=== PATIENT | male | born 1990 | race Two or more races ===

== ENCOUNTER 2021-03-04 22:45 | Emergency (ER) | payer SELFPAY ==
[~2021-03-04] VITALS: Ht 177.8 cm; Wt 79.5 kg
--- NOTE | 2021-03-05 00:07 | PHYS DOC ---
Past Medical History Past Surgical History: No Surgical History Smoking Status: Never Smoker Alcohol Use: Occasionally General Adult EDM: Chief Complaint: FACE PROBLEM HPI: HPI: 30-year-old male presents to the emergency department with a facial lesion along with pain that he is experiencing since 3 days ago. He reports before the pain started [place] Denies any trauma or bug bites that he can recall. He reports his pain is in the middle of his forehead and is associated with a red painful lesion, pain radiates down towards his eyes. He denies any change in his vision, pain with extraocular movements. The patient denies nausea, vomiting, fever, chills, chest pain, shortness of breath, abdominal pain, urinary symptoms, cough, recent trauma, or any other complaints. Review of Systems: Review of Systems: ROS is otherwise negative except for what was mentioned in the HPI Heart Score: C/O Chest Pain: No Current Medications: Current Medications Medications (Trade) Dose Ordered Sig/Denzel Start Time Stop Time Status Last Admin Dose Admin Ketorolac Tromethamine (Toradol 15mg Vial) 15 mg 1X ONCE 03/04/21 23:45 03/04/21 23:46 UNV Physical Exam: PE: Constitutional: No acute distress, non-toxic appearance. HENT: Large pimple-like lesion to the central forehead, painful to touch, surrounding erythema is noted Eyes: PERRLA, EOMI, conjunctiva normal, no discharge. Neck: Normal range of motion, supple, no stridor. Cardiovascular: Heart rate regular rhythm. 2+ radial pulses Lungs & Thorax: No respiratory distress, symmetrical expansion. Abdomen: Soft, no tenderness Skin: Warm, dry. Extremities: No tenderness, no cyanosis, ROM intact, no edema. Neurologic: Alert and oriented X 3, normal motor function, normal sensory function, no focal deficits noted. Non ataxic gait. GCS 15. Psychologic: Affect normal, judgment normal, mood normal. Current Patient Data: Labs: Laboratory Tests Test 03/05/21 00:02 White Blood Count 9.7 x10^3/uL (4.0-11.0) Red Blood Count 5.97 x10^6/uL (4.30-5.70) Hemoglobin 17.3 g/dL (13.0-17.5) Hematocrit 50.3 % (39.0-53.0) Mean Corpuscular Volume 84 fL (79-100) Mean Corpuscular Hemoglobin 29 pg (25-35) Mean Corpuscular Hemoglobin Concent 34 g/dL (31-37) Red Cell Distribution Width 13.9 % (11.5-14.5) Platelet Count 193 x10^3/uL (140-400) Neutrophils (%) (Auto) 62 % (31-73) Lymphocytes (%) (Auto) 29 % (24-48) Monocytes (%) (Auto) 6 % (0-9) Eosinophils (%) (Auto) 2 % (0-3) Basophils (%) (Auto) 1 % (0-3) Neutrophils # (Auto) 6.0 x10^3/uL (1.8-7.7) Lymphocytes # (Auto) 2.8 x10^3/uL (1.0-4.8) Monocytes # (Auto) 0.6 x10^3/uL (0.0-1.1) Eosinophils # (Auto) 0.2 x10^3/uL (0.0-0.7) Basophils # (Auto) 0.1 x10^3/uL (0.0-0.2) Erythrocyte Sedimentation Rate 14 (0-15) Sodium Level 142 mmol/L (136-145) Potassium Level 3.5 mmol/L (3.5-5.1) Chloride Level 106 mmol/L (98-107) Carbon Dioxide Level 28 mmol/L (21-32) Anion Gap 8 (6-14) Blood Urea Nitrogen 11 mg/dL (8-26) Creatinine 0.9 mg/dL (0.7-1.3) Estimated GFR (Cockcroft-Gault) 97.8 Glucose Level 81 mg/dL (70-99) Calcium Level 8.1 mg/dL (8.5-10.1) C-Reactive Protein, Quantitative 5.9 mg/L (0-3.3) Vital Signs: Vital Signs Date Time Temp Pulse Resp B/P (MAP) Pulse Ox O2 Delivery O2 Flow Rate FiO2 03/04/21 23:15 98.3 69 18 154/103 (120) 98 Room Air 98.3 Radiology/Procedures: Radiology/Procedures: CT head without contrast: Reason for examination: Infection and forehead and orbits. Helical images were obtained through the brain with no contrast administered. Reconstruction was performed in coronal plane. Ventricular systems are symmetric and not dilated. No midline shift is seen. There is no evidence of intracranial hemorrhage, infarct, mass or edema. No abnormalities are seen at the orbits. The paranasal sinuses and mastoid air cells appear to be clear. No acute skull abnormality is seen. There is soft tissue fullness in the central frontal region with some focal hyperdensity suggesting hematoma measuring 1 cm in size but no abscess evident. IMPRESSION: No acute intracranial abnormality evident. Soft tissue swelling in the scalp midline at the frontal bones with focal hyperdensity 1 cm in size probably representing a hematoma. CT maxillofacial without contrast: Helical images were obtained through the maxillofacial structures with 75 cc Omnipaque 300 intravenous contrast administered. Reconstruction was performed in sagittal and coronal planes. There is soft tissue swelling in the scalp anterior to the frontal bone c entrally without abnormal enhancement or abscess formation. Appearance suggests a hematoma. No abnormalities are seen at the orbits and the orbital contents show no abnormalities. There are no abnormalities at the nasal bones. Zygomatic arches are intact. The paranasal sinuses are clear and the bony hilario of the sinuses are intact. No abnormalities of seen at the mandible or tempor omandibular joints. Visualized portion of the cervical spine shows no abnormality. IMPRESSION: Soft tissues fullness in the scalp anterior to the frontal bones with no enhancement. No abscess is evident. No other focal abnormality seen in the maxillofacial structures. Exposure: One or more of the following individualized dose reduction techniques were utilized for this examination: 1. Automated exposure control 2. Adjustment of the mA and/or kV according to patient size 3. Use of iterative reconstruction technique. Electronically signed by: Miya Sandy MD (03/05/2021 2:44 AM) Course & Med Decision Making: Course & Med Decision Making We will treat the patient with doxycycline to cover for cellulitis, tick exposure. Patient otherwise stable, appears to be a simple cellulitis patient is very stable. All counseling exams were performed with a grades 9 through 12 teacher present Departure Departure Impression: Primary Impression: Cellulitis of forehead Disposition: 01 HOME / SELF CARE / HOMELESS Condition: STABLE Referrals: WHITNEY BARFIELD MD (PCP) Patient Instructions: Cellulitis, [id number] Additional Instructions: You were seen for a skin infection called cellulitis. You should shaniqua the area of redness when you get home. If your redness spreads past the marked area at 24 hours you should have it evaluated again. You do not have a focused area of infection called an abscess right now, but you could develop one. If so you will need to have it drained. You should return to the ED immediately if you develop worsening pain, fever, swelling, redness, drainage, any sign of abscess, or any other new or concerning symptoms. Take the entire course of antibiotics as prescribed. You have been given a prescription for doxycycline. This medicine is an antibiotic for cellulitis. Please take as prescribed for the full course of the prescription. Do not stop taking the medicine early if you feel better, as this could risk building antibiotic resistance and may put you at risk for a more harmful infection later. The most common side effect of antibiotics include nausea, vomiting, diarrhea and rash. Please come to be evaluated if you develop any symptoms that are concerning to you. One major adverse effect of antibiotics is the development of a diarrheal illness called c. diff colitis, if you develop an excessive amount of diarrhea or are concerned about this please return to the ER or consult a physician. Scripts Doxycycline Hyclate (DOXYCYCLINE HYCLATE) 100 Mg Tablet 1 TAB PO BID for 10 Days, #20 TAB Prov: GEOVANNI ADKINS DO 03/05/21 GEOVANNI ADKINS DO Mar 05, 2021 00:07
[2021-03-05 00:11] LABS: BASO # 0.1 x10^3/uL (0.0-0.2); BASO % 1 % (0-3); EOS # 0.2 x10^3/uL (0.0-0.7); EOS % 2 % (0-3); HEMATOCRIT 50.3 % (39.0-53.0); HEMOGLOBIN 17.3 g/dL (13.0-17.5); LYMPH # 2.8 x10^3/uL (1.0-4.8); LYMPH % 29 % (24-48); MEAN CORPUSCULAR HEMOGLOBIN 29 pg (25-35); MEAN CORPUSCULAR HGB CONC 34 g/dL (31-37); MEAN CORPUSCULAR VOLUME 84 fL (79-100); MONO # 0.6 x10^3/uL (0.0-1.1); MONO % 6 % (0-9); NEUT % 62 % (31-73); PLATELET COUNT 193 x10^3/uL (140-400); RED BLOOD COUNT 5.97 x10^6/uL (4.30-5.70); RED CELL DISTRIBUTION WIDTH 13.9 % (11.5-14.5); WHITE BLOOD COUNT 9.7 x10^3/uL (4.0-11.0)
[2021-03-05 00:27] LABS: CALCIUM 8.1 mg/dL (8.5-10.1); CREATININE 0.9 mg/dL (0.7-1.3); GFR 97.8; POTASSIUM 3.5 mmol/L (3.5-5.1)
[2021-03-05 00:29] LABS: C-REACTIVE PROTEIN 5.9 mg/L (0-3.3)
[2021-03-05] MEDS ORDERED: KETOROLAC 15 MG/ML VIAL. IVP ONE (00:30)
[2021-03-05] MEDS ORDERED: CONTRAST GIVEN. MC PRN (01:00)
[2021-03-05] MEDS ORDERED: IOHEXOL 300 MG/ML 100ML VIAL. IV ONE (01:00)
[2021-03-05 02:44] VITALS: BP 127/69
--- NOTE | 2021-03-05 02:46 | RAD ---
CT head without contrast: Reason for examination: Infection and forehead and orbits. Helical images were obtained through the brain with no contrast administered. Reconstruction was perf ormed in coronal plane. Ventricular systems are symmetric and not dilated. No midline shift is seen. There is no evidence of intracranial hemorrhage, infarct, mass or edema. No abnormalities are seen at the orbits. The paranas al sinuses and mastoid air cells appear to be clear. No acute skull abnormality is seen. There is sof t tissue fullness in the central frontal region with some focal hyperdensity suggesting hematoma richard uring 1 cm in size but no abscess evident. IMPRESSION: No acute intracranial abnormality evident. Soft tissue swelling in the scalp midline at the frontal bones with focal hyperdensity 1 cm in size p robably representing a hematoma. CT maxillofacial without contrast: Helical images were obtained through the maxillofacial structures with 75 cc Omnipaque 300 intravenou s contrast administered. Reconstruction was performed in sagittal and coronal planes. There is soft tissue swelling in the scalp anterior to the frontal bone centrally without abnormal en hancement or abscess formation. Appearance suggests a hematoma. No abnormalities are seen at the orbi ts and the orbital contents show no abnormalities. There are no abnormalities at the nasal bones. Zyg omatic arches are intact. The paranasal sinuses are clear and the bony hilario of the sinuses are intac t. No abnormalities of seen at the mandible or temporomandibular joints. Visualized portion of the ce rvical spine shows no abnormality. IMPRESSION: Soft tissues fullness in the scalp anterior to the frontal bones with no enhancement. No abscess is e vident. No other focal abnormality seen in the maxillofacial structures. Exposure: One or more of the following individualized dose reduction techniques were utilized for thi s examination: 1. Automated exposure control 2. Adjustment of the mA and/or kV according to patient size 3. Use of iterative reconstruction technique. Electronically signed by: Miya Sandy MD (03/05/2021 2:44 AM) [facility]J
[2021-03-05] MEDS ORDERED: DOXY100T PO (02:55)
== END 2021-03-05 03:05 | disposition home or self-care (01) ==
LOC: ER 22:45
DX: L03.211 Cellulitis of face (principal); R51.9 Headache, unspecified
CPT/HCPCS: 36415; 70460; 70487; 80048; 85025; 85651; 86140; 96374; 99285; J1885; Q9967